=== PATIENT | female | born 1930 | race African-American/Black ===

== ENCOUNTER 2020-08-15 17:15 | Inpatient (IN) | payer MEDICARE, OTHER ==
[~2020-08-15] VITALS: Ht 160 cm; Wt 67.7 kg
--- NOTE | 2020-08-15 17:35 | NUR ---
covid swabbed by provider in triage
--- NOTE | 2020-08-15 17:45 | NUR ---
PT BROUGHT BACK TO ROOM VIA PERSONAL WC.
[2020-08-15 18:06] LABS: BASOPHILS % (AUTO) 1 % (0-1); EOSINOPHILS % (AUTO) 2 % (1-7); LYMPHOCYTES % (AUTO) 20 % (22-44); MEAN CORPUSCULAR HEMOGLOBIN 27.1 pg (27.0-34.8); MEAN CORPUSCULAR HGB CONC 32.6 g/dL (32.4-35.8); MEAN PLATELET VOLUME 8.8 fL (7.4-10.4); MONOCYTES % (AUTO) 8 % (2-9); NEUTROPHILS % (AUTO) 69 % (42-75); PLATELET COUNT 270 x10^3/uL (130-400); RED BLOOD COUNT 3.69 x10^6/uL (3.82-5.3); RED CELL DISTRIBUTION WIDTH 16.8 % (9.6-15.2)
[2020-08-15 18:07] LABS: MD NO
[2020-08-15 18:17] LABS: ALBUMIN 3.1 g/dL (3.4-5.0); ANION GAP 6 mmol/L (5-15); CALCIUM 9.4 mg/dL (8.5-10.1); CHLORIDE 107 mmol/L (98-107); CREATININE 1.08 mg/dL (0.55-1.02)
--- NOTE | 2020-08-15 18:19 | NUR ---
PT IN [facility], PT STATES SHE IS HERE BECAUSE SHE FEELS CONGESTED AND THAT IT "IS HARD TO GET SOME MUCOUS UP". PT STATES NO CP, COUGHING, OR GI COMPLAINTS. PT DENIES ANY CONTACT WITH KNOWN COVID-19.
--- NOTE | 2020-08-15 18:23 | NUR ---
PT CURRENTLY ON 2L NC, O2 SAT 93%.
[2020-08-15 18:44] LABS: TROPONIN I < 0.015 ng/mL (0.000-0.045)
--- NOTE | 2020-08-15 20:39 | NUR ---
CT DELAY-PT NEED AC LINE FOR CTA.
[2020-08-15] MEDS ORDERED: SODIUM CHLORIDE FLUSH 10ML SYR IVF PRN (22:30)
--- NOTE | 2020-08-15 22:56 | NUR ---
REPORT GIVEN TO CINDY ASENCIO.
[2020-08-15] MEDS ORDERED: SODIUM CHLORIDE 0.9% 1,000 ML IV SCH (23:00)
[2020-08-15] MEDS ORDERED: BISACODYL 10 MG SUPP PR PRN (23:00)
[2020-08-15] MEDS ORDERED: ONDANSETRON ODT 4 MG PO PRN (23:00)
[2020-08-15] MEDS ORDERED: GUAIFENESIN/DM 200-20MG, 10ML UDC PO PRN (23:00)
[2020-08-15] MEDS ORDERED: AZITHROMYCIN 500 MG in SODIUM CHLORIDE 0.9% 250 ML IV SCH (23:00)
[2020-08-15] MEDS ORDERED: ACETAMINOPHEN 325 MG TABLET PO PRN (23:00)
[2020-08-15] MEDS ORDERED: DEXAMETHASONE 4 MG/ML, 1ML IVPush ONE (23:00)
[2020-08-15] MEDS ORDERED: POLYETHYLENE GLYCOL 17 GM PACKET PO PRN (23:00)
[2020-08-15] MEDS ORDERED: CEFTRIAXONE PMX 1GM/50ML 50 ML ONE ×2 (23:02→23:06)
[2020-08-15] MEDS ORDERED: HEPARIN 5,000 UNITS/ML, 1ML ONE (23:02)
[2020-08-15] MEDS ORDERED: ASCORBIC ACID 500 MG TABLET ONE (23:02)
[2020-08-15] MEDS ORDERED: DEXAMETHASONE 4 MG TABLET ONE (23:02)
[2020-08-15] MEDS ORDERED: OMNIPAQUE 350 MG/ML, 100ML BOTTLE ONE (23:08)
[2020-08-15] MEDS ORDERED: DEXAMETHASONE 4 MG/ML, 1ML ONE (23:38)
[2020-08-15] MEDS: CEFTRIAXONE PMX 1GM/50ML 50 ML IV SCH (23:40)
[2020-08-15] MEDS: HEPARIN 5,000 UNITS/ML, 1ML SQ SCH (23:40)
[2020-08-15] MEDS: ASCORBIC ACID 500 MG TABLET PO SCH (23:41)
[2020-08-15 23:42] LABS: C-REACTIVE PROTEIN, QUANT 0.99 mg/dL (0.02-0.49)
[2020-08-15 23:44] VITALS: BP 168/83
[2020-08-15 23:47] LABS: INTERNATIONAL NORMALIZED RATIO 1.08 (0.93-1.1); PROTHROMBIN TIME 11.4 Seconds (9.6-11.5)
[2020-08-16 04:06] VITALS: BP 142/64
[2020-08-16 05:18] LABS: BASOPHILS % (AUTO) 0 % (0-1); EOSINOPHILS % (AUTO) 0 % (1-7); LYMPHOCYTES % (AUTO) 12 % (22-44); MEAN CORPUSCULAR HEMOGLOBIN 27.2 pg (27.0-34.8); MEAN CORPUSCULAR HGB CONC 32.6 g/dL (32.4-35.8); MONOCYTES % (AUTO) 2 % (2-9); NEUTROPHILS % (AUTO) 86 % (42-75); PLATELET COUNT 243 x10^3/uL (130-400); RED BLOOD COUNT 3.85 x10^6/uL (3.82-5.3); RED CELL DISTRIBUTION WIDTH 16.6 % (9.6-15.2)
[2020-08-16 05:22] LABS: MD NO
[2020-08-16 05:34] LABS: ANION GAP 9 mmol/L (5-15); CALCIUM 9.5 mg/dL (8.5-10.1); CHLORIDE 110 mmol/L (98-107)
--- NOTE | 2020-08-16 06:56 | NUR ---
REPORT RECEIVED FROM CINDY ASENCIO FOR TRANSFER OF PATIENT CARE.
[2020-08-16] MEDS ORDERED: HEPARIN 5,000 UNITS/ML, 1ML ONE ×2 (07:40→17:18)
[2020-08-16] MEDS ORDERED: SENNA/DOCUSATE TABLET ONE (07:40)
[2020-08-16] MEDS ORDERED: ZINC SULFATE 220 MG CAPSULE ONE (07:40)
[2020-08-16] MEDS ORDERED: ASCORBIC ACID 500 MG TABLET ONE ×2 (07:40→17:18)
[2020-08-16] MEDS ORDERED: DEXAMETHASONE 4 MG/ML, 1ML ONE (07:40)
[2020-08-16] MEDS: ASCORBIC ACID 500 MG TABLET PO SCH ×2 (07:50→17:28)
[2020-08-16] MEDS: HEPARIN 5,000 UNITS/ML, 1ML SQ SCH ×2 (07:50→17:28)
[2020-08-16] MEDS: SENNA/DOCUSATE TABLET PO SCH (07:50)
[2020-08-16] MEDS: ZINC SULFATE 220 MG CAPSULE PO SCH (07:50)
[2020-08-16] MEDS: DEXAMETHASONE 4 MG/ML, 1ML IVPush SCH (07:51)
[2020-08-16] MEDS ORDERED: ALBU90AE2 INH (08:10)
[2020-08-16] MEDS ORDERED: POLY17PO5 PO (08:10)
[2020-08-16] MEDS ORDERED: LIDO35.46 HOMETD (08:10)
[2020-08-16] MEDS ORDERED: HYDR-3341 PO (08:10)
[2020-08-16] MEDS ORDERED: GABA-826 PO (08:10)
[2020-08-16] MEDS ORDERED: CICL6.1H4 INH (08:10)
[2020-08-16] MEDS ORDERED: LACT10SO28 PO (08:10)
[2020-08-16] MEDS ORDERED: DICL100G19 HOMETP (08:10)
[2020-08-16] MEDS ORDERED: LEVO100T5 PO (08:10)
[2020-08-16] MEDS ORDERED: HYDR25SU4 RC (08:10)
[2020-08-16] MEDS ORDERED: HUM100VI SC (08:13)
[2020-08-16] MEDS ORDERED: INSU100V5 SQ-INSULIN (08:13)
--- NOTE | 2020-08-16 08:20 | NUR ---
SPOKE WITH PATIENT'S GRANDDAUGHTER AND UPDATED MEDICATION LIST.
[2020-08-16] MEDS: CHOLECALCIFEROL 400 UNITS TABLET PO SCH (08:26)
--- NOTE | 2020-08-16 09:21 | NUR ---
WARM BLANKET PROVIDED TO PATIENT.
[2020-08-16] MEDS ORDERED: ALBUTEROL SULFATE 200 PUFFS/8.5 GR INH INH PRN (11:00)
[2020-08-16] MEDS ORDERED: POLYETHYLENE GLYCOL 17 GM PACKET ONE (11:16)
[2020-08-16] MEDS: POLYETHYLENE GLYCOL 17 GM PACKET PO SCH (11:29)
[2020-08-16] MEDS: LEVOTHYROXINE 100 MCG TABLET PO SCH (11:29)
[2020-08-16] MEDS: LACTULOSE 10 GM/15 ML UDC PO SCH (11:29)
--- NOTE | 2020-08-16 11:34 | NUR ---
PATIENT MEDICATED PER eMAR, SITTING IN GURNEY WATCHING TV, CONNECTED TO EMERGENCY MANAGEMENT SPECIALIST, NO SIGNS OF ACUTE DISTRESS, SIDE RAILS UP X2, CALL LIGHT WITHIN REACH. LUNCH TRAY ORDERED.
--- NOTE | 2020-08-16 12:18 | NUR ---
LUNCH TRAY PROVIDED.
--- NOTE | 2020-08-16 12:49 | NUR ---
PUREWICK CANISTER EMPTIED, 1500 mLS RECORDED FOR URINE OUTPUT.
--- NOTE | 2020-08-16 13:13 | NUR ---
PATIENT RESTING IN HOSPITAL BED WITH EYES CLOSED, RESPIRATIONS EVEN AND UNLABORED, CONNECTED TO SIGNALS COLLECTOR/ANALYST, NO SIGNS OF ACUTE DISTRESS, SIDE RAILS UP, CALL LIGHT WITHIN REACH.
--- NOTE | 2020-08-16 13:23 | NUR ---
PACKAGING TECH AT BEDSIDE.
--- NOTE | 2020-08-16 15:50 | NUR ---
ASSISTED PT TO CHAIR, CHANGED LINENS. TRUMAN CARE AND NEW PUREWHICK APPLIED. CALL LIGHT IN REACH. GIVEN CRACKERS AND COFFEE. SIDE RAILS UP. VSS.
--- NOTE | 2020-08-16 17:33 | NUR ---
GIVEN MEAL TRAY.
--- NOTE | 2020-08-16 18:07 | NUR ---
BELONGINGS DROPPED OFF BY DAUGHTER. GIVEN TO PT
--- NOTE | 2020-08-16 18:51 | NUR ---
REPORT TO MARA
[2020-08-16 20:29] VITALS: BP 147/79
[2020-08-16] MEDS: INSULIN LISPRO 100 UNITS/ML, PEN SQ-INSULIN SCH (21:00)
[2020-08-16] MEDS: CICLESONIDE 80 MCG HOMEINH SCH (21:00)
[2020-08-16] MEDS: CEFTRIAXONE PMX 1GM/50ML 50 ML IV SCH (23:40)
[2020-08-17] MEDS: HEPARIN 5,000 UNITS/ML, 1ML SQ SCH ×3 (02:30→17:31)
[2020-08-17 02:31] VITALS: BP 139/76
[2020-08-17 04:12] LABS: BASOPHILS % (AUTO) 0 % (0-1); EOSINOPHILS % (AUTO) 1 % (1-7); LYMPHOCYTES % (AUTO) 24 % (22-44); MEAN CORPUSCULAR HEMOGLOBIN 26.9 pg (27.0-34.8); MEAN CORPUSCULAR HGB CONC 32.4 g/dL (32.4-35.8); MEAN PLATELET VOLUME 8.7 fL (7.4-10.4); MONOCYTES % (AUTO) 12 % (2-9); NEUTROPHILS % (AUTO) 63 % (42-75); PLATELET COUNT 163 x10^3/uL (130-400); RED BLOOD COUNT 3.44 x10^6/uL (3.82-5.3); RED CELL DISTRIBUTION WIDTH 16.4 % (9.6-15.2)
[2020-08-17 04:15] LABS: MD NO
[2020-08-17 04:16] LABS: ALBUMIN 2.8 g/dL (3.4-5.0); ANION GAP 6 mmol/L (5-15); C-REACTIVE PROTEIN, QUANT 0.82 mg/dL (0.02-0.49); CALCIUM 8.9 mg/dL (8.5-10.1); CHLORIDE 110 mmol/L (98-107)
[2020-08-17 04:19] LABS: ALANINE AMINOTRANSFERASE 21 U/L (12-78); ALKALINE PHOSPHATASE 66 U/L (45-117); BILIRUBIN,TOTAL 0.4 mg/dL (0.2-1.0); CREATININE 1.16 mg/dL (0.55-1.02); TOTAL PROTEIN 6.9 g/dL (6.4-8.2)
[2020-08-17 05:06] LABS: HCT (SEDRATE) 28.6 % (34.6-47.8)
[2020-08-17] MEDS: ARTIFICIAL TEARS 15 DROP/ML BOTTLE EACHEYE PRN (06:11)
[2020-08-17 08:25] VITALS: BP 143/78
[2020-08-17] MEDS: INSULIN LISPRO 100 UNITS/ML, PEN SQ-INSULIN SCH ×4 (09:34→19:52)
[2020-08-17] MEDS: ZINC SULFATE 220 MG CAPSULE PO SCH (09:36)
[2020-08-17] MEDS: ASCORBIC ACID 500 MG TABLET PO SCH ×2 (09:36→17:30)
[2020-08-17] MEDS: SENNA/DOCUSATE TABLET PO SCH (09:36)
[2020-08-17] MEDS: LEVOTHYROXINE 100 MCG TABLET PO SCH (09:37)
[2020-08-17] MEDS: CHOLECALCIFEROL 400 UNITS TABLET PO SCH (09:37)
[2020-08-17] MEDS: AZITHROMYCIN 500 MG TABLET PO SCH (09:37)
[2020-08-17] MEDS: CICLESONIDE 80 MCG HOMEINH SCH ×2 (09:38→19:52)
[2020-08-17] MEDS: DEXAMETHASONE 4 MG/ML, 1ML IVPush SCH (09:43)
[2020-08-17] MEDS: LACTULOSE 10 GM/15 ML UDC PO SCH (09:43)
[2020-08-17] MEDS: POLYETHYLENE GLYCOL 17 GM PACKET PO SCH (09:44)
[2020-08-17 16:15] VITALS: BP 162/86
[2020-08-17 18:43] LABS: RAPID INFLUENZA A Negative (Negative); RAPID INFLUENZA B Negative (Negative)
[2020-08-17 19:13] VITALS: BP 143/92
[2020-08-17] MEDS: CEFTRIAXONE PMX 1GM/50ML 50 ML IV SCH (23:08)
[2020-08-18 00:16] VITALS: BP 144/80
[2020-08-18] MEDS: HEPARIN 5,000 UNITS/ML, 1ML SQ SCH ×3 (01:08→18:05)
[2020-08-18 05:53] LABS: BASOPHILS % (AUTO) 1 % (0-1); EOSINOPHILS % (AUTO) 2 % (1-7); LYMPHOCYTES % (AUTO) 28 % (22-44); MEAN CORPUSCULAR HEMOGLOBIN 27.4 pg (27.0-34.8); MEAN CORPUSCULAR HGB CONC 32.8 g/dL (32.4-35.8); MEAN PLATELET VOLUME 9.2 fL (7.4-10.4); MONOCYTES % (AUTO) 10 % (2-9); NEUTROPHILS % (AUTO) 59 % (42-75); PLATELET COUNT 238 x10^3/uL (130-400); RED BLOOD COUNT 3.55 x10^6/uL (3.82-5.3); RED CELL DISTRIBUTION WIDTH 16.3 % (9.6-15.2)
[2020-08-18 06:04] LABS: HCT (SEDRATE) 29.5 % (34.6-47.8)
[2020-08-18 06:05] LABS: ALANINE AMINOTRANSFERASE 20 U/L (12-78); ALBUMIN 2.8 g/dL (3.4-5.0); ANION GAP 7 mmol/L (5-15); C-REACTIVE PROTEIN, QUANT 0.45 mg/dL (0.02-0.49); CALCIUM 8.9 mg/dL (8.5-10.1); CHLORIDE 107 mmol/L (98-107); CREATININE 1.08 mg/dL (0.55-1.02)
[2020-08-18 06:08] LABS: ALKALINE PHOSPHATASE 69 U/L (45-117); BILIRUBIN,TOTAL 0.3 mg/dL (0.2-1.0)
[2020-08-18 06:22] LABS: MD NO
[2020-08-18] MEDS: INSULIN LISPRO 100 UNITS/ML, PEN SQ-INSULIN SCH ×4 (07:00→20:01)
[2020-08-18] MEDS: POLYETHYLENE GLYCOL 17 GM PACKET PO SCH (08:37)
[2020-08-18] MEDS: LACTULOSE 10 GM/15 ML UDC PO SCH (08:37)
[2020-08-18] MEDS: ZINC SULFATE 220 MG CAPSULE PO SCH (08:41)
[2020-08-18] MEDS: CHOLECALCIFEROL 400 UNITS TABLET PO SCH (08:41)
[2020-08-18] MEDS: LEVOTHYROXINE 100 MCG TABLET PO SCH (08:42)
[2020-08-18] MEDS: ASCORBIC ACID 500 MG TABLET PO SCH (08:42)
[2020-08-18] MEDS: AZITHROMYCIN 500 MG TABLET PO SCH (08:42)
[2020-08-18] MEDS: SENNA/DOCUSATE TABLET PO SCH (08:42)
[2020-08-18] MEDS: DEXAMETHASONE 4 MG/ML, 1ML IVPush SCH (08:43)
[2020-08-18 08:46] VITALS: BP 153/85
[2020-08-18] MEDS: CICLESONIDE 80 MCG HOMEINH SCH ×2 (08:48→21:00)
[2020-08-18] MEDS ORDERED: BUDESONIDE 0.5 MG/2 ML INHA INH SCH (10:30)
[2020-08-18 12:24] VITALS: BP 149/89
[2020-08-18] MEDS: ALBUTEROL SULFATE 200 PUFFS/8.5 GR INH INH SCH ×2 (16:00→21:00)
[2020-08-18 18:59] VITALS: BP 156/80
[2020-08-18] MEDS: ARTIFICIAL TEARS 15 DROP/ML BOTTLE EACHEYE PRN (20:01)
[2020-08-18] MEDS: ALBUTEROL HFA 90 MCG/SPRAY INH PRN (20:47)
[2020-08-18] MEDS: CEFTRIAXONE PMX 1GM/50ML 50 ML IV SCH (23:16)
[2020-08-19 00:54] VITALS: BP 146/86
[2020-08-19] MEDS: HEPARIN 5,000 UNITS/ML, 1ML SQ SCH ×3 (01:45→16:47)
[2020-08-19] MEDS: ALBUTEROL SULFATE 200 PUFFS/8.5 GR INH INH SCH ×4 (06:00→20:45)
[2020-08-19] MEDS: ALBUTEROL HFA 90 MCG/SPRAY INH PRN ×2 (06:29→08:28)
[2020-08-19] MEDS: ARTIFICIAL TEARS 15 DROP/ML BOTTLE EACHEYE PRN ×4 (06:31→20:45)
[2020-08-19] MEDS: INSULIN LISPRO 100 UNITS/ML, PEN SQ-INSULIN SCH ×4 (07:00→20:44)
[2020-08-19 07:34] VITALS: BP 179/82
[2020-08-19] MEDS: AZITHROMYCIN 500 MG TABLET PO SCH (08:26)
[2020-08-19] MEDS: LEVOTHYROXINE 100 MCG TABLET PO SCH (08:27)
[2020-08-19] MEDS: SENNA/DOCUSATE TABLET PO SCH (08:27)
[2020-08-19] MEDS: CICLESONIDE 80 MCG HOMEINH SCH ×2 (08:28→20:44)
[2020-08-19] MEDS: FLUTICASONE/VILANTEROL 100-25MCG/INH INH SCH (08:28)
[2020-08-19] MEDS: POLYETHYLENE GLYCOL 17 GM PACKET PO SCH (08:28)
[2020-08-19 08:29] LABS: ALANINE AMINOTRANSFERASE 25 U/L (12-78); ANION GAP 7 mmol/L (5-15); CALCIUM 9.4 mg/dL (8.5-10.1); CHLORIDE 112 mmol/L (98-107); CREATININE 1.03 mg/dL (0.55-1.02)
[2020-08-19] MEDS: LACTULOSE 10 GM/15 ML UDC PO SCH (08:29)
[2020-08-19 08:31] LABS: ALKALINE PHOSPHATASE 67 U/L (45-117); BILIRUBIN,TOTAL 0.4 mg/dL (0.2-1.0); TOTAL PROTEIN 7.2 g/dL (6.4-8.2)
[2020-08-19 11:02] LABS: BASOPHILS % (AUTO) 1 % (0-1); EOSINOPHILS % (AUTO) 3 % (1-7); LYMPHOCYTES % (AUTO) 17 % (22-44); MEAN CORPUSCULAR HEMOGLOBIN 26.4 pg (27.0-34.8); MEAN CORPUSCULAR HGB CONC 31.9 g/dL (32.4-35.8); MONOCYTES % (AUTO) 8 % (2-9); NEUTROPHILS % (AUTO) 72 % (42-75); RED BLOOD COUNT 3.96 x10^6/uL (3.82-5.3); RED CELL DISTRIBUTION WIDTH 16.7 % (9.6-15.2)
[2020-08-19 11:28] LABS: MEAN PLATELET VOLUME 7.3 fL (7.4-10.4)
[2020-08-19 11:29] LABS: PLATELET COUNT 293 x10^3/uL (130-400)
[2020-08-19 11:30] LABS: MD SCAN
[2020-08-19 13:05] VITALS: BP 163/78
[2020-08-19 19:46] VITALS: BP 136/68
[2020-08-19] MEDS: CEFTRIAXONE PMX 1GM/50ML 50 ML IV SCH (22:47)
[2020-08-20] MEDS: HEPARIN 5,000 UNITS/ML, 1ML SQ SCH ×3 (00:49→17:59)
[2020-08-20 01:06] VITALS: BP 114/79
[2020-08-20] MEDS: ALBUTEROL SULFATE 200 PUFFS/8.5 GR INH INH SCH ×4 (05:38→20:15)
[2020-08-20 06:57] VITALS: BP 179/72
[2020-08-20] MEDS: INSULIN LISPRO 100 UNITS/ML, PEN SQ-INSULIN SCH ×4 (07:39→20:22)
[2020-08-20] MEDS: CICLESONIDE 80 MCG HOMEINH SCH ×2 (09:00→20:15)
[2020-08-20] MEDS: AZITHROMYCIN 500 MG TABLET PO SCH (09:17)
[2020-08-20] MEDS: SENNA/DOCUSATE TABLET PO SCH (09:17)
[2020-08-20] MEDS: LEVOTHYROXINE 100 MCG TABLET PO SCH (09:17)
[2020-08-20] MEDS: POLYETHYLENE GLYCOL 17 GM PACKET PO SCH (09:18)
[2020-08-20] MEDS: FLUTICASONE/VILANTEROL 100-25MCG/INH INH SCH (09:19)
[2020-08-20] MEDS: LACTULOSE 10 GM/15 ML UDC PO SCH (09:29)
[2020-08-20] MEDS: ALBUTEROL HFA 90 MCG/SPRAY INH PRN (10:49)
[2020-08-20] MEDS: GUAIFENESIN ER 600 MG TABLET PO SCH ×2 (12:22→20:14)
[2020-08-20 13:44] VITALS: BP 131/58
[2020-08-20 19:22] VITALS: BP 155/74
[2020-08-20 19:23] VITALS: BP 176/78
[2020-08-20] MEDS ORDERED: CEFTRIAXONE PMX 1GM/50ML 50 ML IV SCH (23:00)
[2020-08-21 00:20] VITALS: BP 157/76
[2020-08-21] MEDS: HEPARIN 5,000 UNITS/ML, 1ML SQ SCH ×3 (01:18→16:19)
[2020-08-21] MEDS: ALBUTEROL SULFATE 200 PUFFS/8.5 GR INH INH SCH ×3 (05:30→16:00)
[2020-08-21 06:45] VITALS: BP 173/73
[2020-08-21] MEDS: INSULIN LISPRO 100 UNITS/ML, PEN SQ-INSULIN SCH ×3 (07:00→16:18)
[2020-08-21] MEDS: SENNA/DOCUSATE TABLET PO SCH (08:00)
[2020-08-21] MEDS: LEVOTHYROXINE 100 MCG TABLET PO SCH (08:00)
[2020-08-21] MEDS: GUAIFENESIN ER 600 MG TABLET PO SCH (08:01)
[2020-08-21] MEDS: LACTULOSE 10 GM/15 ML UDC PO SCH (08:01)
[2020-08-21] MEDS: POLYETHYLENE GLYCOL 17 GM PACKET PO SCH (08:02)
[2020-08-21] MEDS: FLUTICASONE/VILANTEROL 100-25MCG/INH INH SCH (08:06)
[2020-08-21] MEDS: CICLESONIDE 80 MCG HOMEINH SCH (08:07)
[2020-08-21 12:22] VITALS: BP 187/79
== END 2020-08-21 17:42 | disposition home health service (06) | DRG 193 ==
LOC: ED 17:40 → EDIP 22:23 → 3N 08-16 20:28
PROVIDERS: ADMIT Internal Medicine; ATTEND Family Medicine
DX: J18.9 Pneumonia, unspecified organism (principal); J96.01 Acute respiratory failure with hypoxia; I31.3 Pericardial effusion (noninflammatory); E03.9 Hypothyroidism, unspecified; E11.9 Type 2 diabetes mellitus without complications; D64.9 Anemia, unspecified; J45.909 Unspecified asthma, uncomplicated; K59.09 Other constipation; I10 Essential (primary) hypertension; Z66 Do not resuscitate; T38.0X5A Adverse effect of glucocorticoids and synthetic analogues, initial encounter; Y92.89 Other specified places as the place of occurrence of the external cause
CPT/HCPCS: 36415; 71045; 71275; 80048; 80053; 82040; 82728; 82962; 83036; 83605; 83615; 83880; 84145; 84484; 85025; 85379; 85384; 85610; 85651; 86140; 87040; 87400; 87635; 93005; 93306; 93356; 96374; 99285; G0378; J0456; J0696; J1100; J1644; Q9967; J1815; J7030; J7050; J7512; U0003

== ENCOUNTER 2021-03-08 14:18 | Day surgery (SDC) | payer MEDICARE ==
[2021-03-06 10:09] LABS: BASOPHILS % (AUTO) 0 % (0-1); EOSINOPHILS % (AUTO) 2 % (1-7); LYMPHOCYTES % (AUTO) 24 % (22-44); MEAN CORPUSCULAR HEMOGLOBIN 26.9 pg (27.0-34.8); MEAN CORPUSCULAR HGB CONC 32.9 g/dL (32.4-35.8); MEAN PLATELET VOLUME 8.8 fL (7.4-10.4); MONOCYTES % (AUTO) 9 % (2-9); NEUTROPHILS % (AUTO) 64 % (42-75); PLATELET COUNT 192 x10^3/uL (130-400); RED BLOOD COUNT 3.95 x10^6/uL (3.82-5.3); RED CELL DISTRIBUTION WIDTH 23.7 % (9.6-15.2)
[2021-03-06 10:10] LABS: MICROSCOPIC AUTO
[2021-03-06 10:17] LABS: INTERNATIONAL NORMALIZED RATIO 0.98 (0.93-1.1); PROTHROMBIN TIME 10.5 Seconds (9.6-11.5)
[2021-03-06 10:18] LABS: ALANINE AMINOTRANSFERASE 21 U/L (12-78); ALBUMIN 3.7 g/dL (3.4-5.0); ANION GAP 10 mmol/L (5-15); CALCIUM 10.3 mg/dL (8.5-10.1); CHLORIDE 102 mmol/L (98-107)
[2021-03-06 10:21] LABS: ALKALINE PHOSPHATASE 87 U/L (45-117); BILIRUBIN,TOTAL 0.4 mg/dL (0.2-1.0); CREATININE 1.41 mg/dL (0.55-1.02); TOTAL PROTEIN 8.4 g/dL (6.4-8.2)
[2021-03-06 10:41] LABS: ANISOCYTOSIS 2+; ECHINOCYTES 1+; MICROCYTOSIS 1+; OVALOCYTES 1+
[2021-03-06 10:43] LABS: <PLATELET ESTIMATE> ADEQUATE; <PLT MORPHOLOGY> NORMAL PLT MORPH
[~2021-03-08] VITALS: Ht 160 cm; Wt 67.3 kg
[~2021-03-08 14:18] MED LIST: ALBU90AE2 INH; AMLO-211 PO; ATOR40TA78 PO; CICL6.1H4 INH; DICL100G19 HOMETP; DIPH25CA61 PO; FLUT9.9S NS; FURO20TA3 PO; GABA-826 PO; GABA300C PO; HUM100VI SC; HYDR-3341 PO; HYDR25SU4 RC; INSU100V5 SQ-INSULIN; LACT10SO28 PO; LEVO100T5 PO; LIDO35.46 HOMETD; LOSA100T14 PO; METF500T17 PO; METO25TA35 PO; MULT-709 PO; OMEG1CAP23 PO; POLY17PO5 PO; benefiber PO
[2021-03-08 14:49] VITALS: BP 144/75
[2021-03-08] MEDS ORDERED: FENTANYL PF 100 MCG/2ML ONE (14:49)
[2021-03-08] MEDS ORDERED: OMNIPAQUE 350 MG/ML, 50 ML BOTTLE ONE (14:50)
[2021-03-08] MEDS ORDERED: FENTANYL PF 100 MCG/2ML IV PRN (15:00)
[2021-03-08] MEDS ORDERED: ACETAMINOPHEN 325 MG TABLET PO PRN (15:00)
[2021-03-08] MEDS ORDERED: LACTATED RINGERS 1,000 ML IV SCH (15:00)
[2021-03-08] MEDS ORDERED: LABETALOL 5MG/ML, 20ML IV PRN (15:00)
[2021-03-08] MEDS ORDERED: ALBUTEROL SULFATE 2.5 MG/3 ML NPPB PRN (15:00)
[2021-03-08] MEDS ORDERED: insulin SQ (15:00)
[2021-03-08] MEDS ORDERED: PROMETHAZINE 25 MG/ML, 1ML IVPush PRN (15:00)
[2021-03-08] MEDS ORDERED: OXYcodone 5 MG/5 ML ORAL.SOL UDC PO PRN (15:00)
[2021-03-08] MEDS ORDERED: hydrALAzine 20 MG/ML, 1ML IV PRN (15:00)
[2021-03-08] MEDS ORDERED: MIDAZOLAM 1 MG/ML, 2ML ONE (15:23)
[2021-03-08] MEDS ORDERED: CHLORHEXIDINE 15 ML UDC PO ONE (15:30)
[2021-03-08] MEDS ORDERED: ONDANSETRON 2MG/ML, 2ML ONE (15:42)
[2021-03-08] MEDS ORDERED: CEFAZOLIN 1,000 MG ONE (15:42)
[2021-03-08] MEDS ORDERED: PROPOFOL 10 MG/ML, 20ML ONE (15:42)
[2021-03-08] MEDS ORDERED: PHENAZOPYRIDINE 200 MG TABLET ONE (16:26)
[2021-03-08] MEDS ORDERED: PHENAZOPYRIDINE 200 MG TABLET PO ONE (16:30)
== END 2021-03-08 17:20 | disposition home or self-care (01) ==
LOC: OR 14:18
PROVIDERS: ATTEND Urology
DX: Z46.6 Encounter for fitting and adjustment of urinary device (principal); N13.30 Unspecified hydronephrosis; E11.22 Type 2 diabetes mellitus with diabetic chronic kidney disease; I12.9 Hypertensive chronic kidney disease with stage 1 through stage 4 chronic kidney disease, or unspecified chronic kidney disease; N18.9 Chronic kidney disease, unspecified; E78.5 Hyperlipidemia, unspecified; J44.9 Chronic obstructive pulmonary disease, unspecified; E03.9 Hypothyroidism, unspecified; K59.09 Other constipation; Z20.822 Contact with and (suspected) exposure to COVID-19; Z79.01 Long term (current) use of anticoagulants; Z79.4 Long term (current) use of insulin; Z79.890 Hormone replacement therapy; Z79.899 Other long term (current) drug therapy; Z88.5 Allergy status to narcotic agent; Z88.8 Allergy status to other drugs, medicaments and biological substances
CPT/HCPCS: 36415; 52332; 74018; 80053; 81001; 82962; 85025; 85610; 87086; 93005; C2617; J0690; J2250; J2405; J2704; J3010; U0003; U0005; 76000; Q9967